=== PATIENT | female | born 1985 | race Caucasian/White ===

== ENCOUNTER 2018-05-11 11:55 | Day surgery (SDC) | payer OTHER ==
[~2018-05-11] VITALS: Ht 170.2 cm; Wt 132.4 kg
[~2018-05-11 11:55] MED LIST: PROZAC20 MG PO; REQUIP1 MG PO; SYNTHROID75 MCG PO; VITAMIN D2000 UNI1 PO; VITRON-C TABLE1 EACH PO
[2018-05-11 12:14] VITALS: BP 138/86
[2018-05-11 16:25] VITALS: BP 119/70
[2018-05-11 17:20] VITALS: BP 126/76
== END 2018-05-11 17:30 | disposition home or self-care (01) ==
LOC: SDC 11:55
PROC: 0LB60ZZ Excision of Left Lower Arm and Wrist Tendon, Open Approach (ICD-10-PCS; principal; 2018-05-11)
DX: M71.332 Other bursal cyst, left wrist (principal); E03.9 Hypothyroidism, unspecified; Z87.891 Personal history of nicotine dependence
CPT/HCPCS: 88304; J1170; J1885; J2250; J3010; S0020